=== PATIENT | female | born 1980 | race Caucasian/White ===

== ENCOUNTER 2019-11-05 16:00 | Outpatient (RCR) | payer OTHER, SELFPAY ==
--- NOTE | 2019-10-01 08:22 | HMH.PTOPEV ---
PT Outpatient Evaluation Rehab PT Outpatient Evaluation Start: 10/01/19 06:57 Freq: Status: Active Protocol: Document 10/01/19 07:33 PDESEROUX (Rec: 10/01/19 08:22 [email or web address] [id number]) Electronically Signed By Elias Rosario, DORA 10/01/19 07:33 Outpatient Therapy Subjective History Subjective History Pt. is a 38 year old female who presents to outpatient PT with complaints of chronic cervical/RUE P! of insidious onset 1 year ago with a recent exacerbation in the summer of 2018. Pt. reports an ache that radiates inferiorly to her hand with symptoms of tingling in her 3rd/4th/5th digits. Pt. denies symptoms in her L cervical anatomical region/LUE. Pt. reports symptoms are worse at the end of the week after working. Pt. reports symptom relief for a few days post steroid injection. Pt. denies having diagnostic imaging for current pathology. Pt. RTMD if necessary. Current medications include Ibuprofen, steroid pack, and a muscle relaxer(pt. unable to recall prescription name at this time). PMH includes 2 sections and a cervical biopsy. Chief Complaint Pain,Paresthesia,Other Symptom Type Ache,Tingling,Shooting Symptoms Relieved By Rest/Positioning,Ice, Prescription Meds Symptoms Aggravated By Physical Activity,Lifting Prior Functional Limitations None Current Functional Limitations Sleeping,Recreation Activity Symptom Description Constant and Continuous Level of pain today (0-10) 2 Pain scale - at its best (0-10) 2 Pain scale - at its worst (0-10) 6 Cervical Eval Palpation Cervical Muscles R Cervical Paraspinal,R Suboccipital,R CT Junction,R Upper Trapezius,R Thoracic Paraspinals Cervical/Thoracic Palpation Findings Tenderness,Spasm Posture Head/C-Spine Posture Sitting Position Neutral Position Head/C-Spine Posture Standing Position Neutral Position Flexibility Deficits Upper Trapezius Muscle Length (
== END 2019-11-15 09:21 | disposition home or self-care (01) ==
LOC: PT.CARL 16:00
PROVIDERS: Visit Provider Internal Medicine Adolescent Medicine
DX: M75.41 Impingement syndrome of right shoulder (principal)
CPT/HCPCS: 97012; 97033; 97110; 97140; 97163

== ENCOUNTER → 2020-02-17 08:08 | Outpatient (POV) | payer OTHER, SELFPAY | PROVIDERS: PCP Internal Medicine Adolescent Medicine; Referring Provider Internal Medicine Adolescent Medicine; Visit Provider Specialist | DX: M79.601 Pain in right arm (principal); R20.2 Paresthesia of skin | CPT/HCPCS: 95886; 95908 ==

== ENCOUNTER → 2021-07-09 08:04 | Outpatient (CLI) | payer OTHER, SELFPAY ==
--- NOTE | 2021-07-09 08:08 | XR_ITS ---
PROCEDURE: XR ELBOW RT MIN 3V CLINICAL INDICATION: RT ELBOW PAIN COMPARISON: No exams were available for comparison FINDINGS: Longitudinal lucency is present involving the anterior aspect of the coracoid process suggesting a nondisplaced fracture. There is a positive anterior fat pad. No other significant anomalies are evident. The joint spaces are well-preserved. No significant degenerative/arthritic changes. No erosive changes evident. Other findings:None. IMPRESSION: Nondisplaced fracture of the coracoid process. Dictated by: Saurabh Solorzano MD 07/09/2021 09:22 Saurabh Solorzano MD in [facility] 07/09/2021 09:22
== END ==
PROVIDERS: PCP Internal Medicine Adolescent Medicine; Visit Provider Internal Medicine Adolescent Medicine
DX: M25.521 Pain in right elbow (principal)
CPT/HCPCS: 73080

== ENCOUNTER → 2021-07-19 16:45 | Outpatient (CLI) | payer OTHER, SELFPAY ==
--- NOTE | 2021-07-19 16:49 | MR_ITS ---
PROCEDURE: MR ELBOW RT WO CON CLINICAL INDICATION: PAIN IN RIGHT ELBOW Elbow fracture, injury with pain Posterior elbow pain. Unable to extend the elbow COMPARISON: CR XR ELBOW RT MIN 3V from 07/09/2021 TECHNIQUE: Routine multiplanar multi echo sequences are performed without gadolinium enhancement. FINDINGS: Motion artifact obscures fine detail on these images. The triceps tendon appears intact. There is a small elbow joint effusion. Bone marrow edema is present at the coronoid process with a small avulsion fracture involving the anterior tip of the coronoid process. The radial head has an unremarkable appearance. There is suspected partial tear versus sprain of the ulnar collateral ligament involving the posterior bundle proximally. The anterior bundle appears intact. There is increased T2 signal along the proximal aspect of the lateral collateral ligament. This could be due to a partial tear or sprain. The annular ligament appears intact. The common extensor tendon has an unremarkable appearance. Small amount of soft tissue edema is present peripheral to the common extensor tendon and could be due to posttraumatic change. There is increased T2 signal involving the proximal aspect of the common flexor tendon suggesting partial tear or strain. The biceps tendon appears intact. The brachialis tendon also appears intact. There is some irregularity of the joint capsule anteriorly along the posterior aspect of the brachialis muscle... IMPRESSION: 1. Elbow joint effusion with bone marrow edema of the coronoid process with avulsion fracture of the tip of the coronoid process. 2. The triceps tendon appears intact. 3. Suspect tear versus sprain of the posterior bundle of the ulnar collateral ligament and proximal aspect of the lateral collateral ligament. 4. Increased T2 signal of the proximal aspect of the common flexor tendon suggesting partial tear or strain. 5. Irregularity of the joint capsule anteriorly which could be due to partial tear of the joint capsule versus underlying debris. Dictated by: Saurabh Solorzano MD 07/20/2021 08:48 Saurabh Solorzano MD in [facility] 07/20/2021 08:48
== END ==
PROVIDERS: PCP Internal Medicine Adolescent Medicine; Visit Provider Orthopaedic Surgery Adult Reconstructive Orthopaedic Surgery
DX: M25.521 Pain in right elbow (principal)
CPT/HCPCS: 73221

== ENCOUNTER → 2021-08-25 18:41 | Outpatient (CLI) | payer OTHER, SELFPAY ==
[2021-08-25 18:55] LABS: Adenovirus F 40/41, stool Not Detected (NotDetected); Astrovirus Not Detected (NotDetected); Campylobacter Not Detected (NotDetected); Clostridium Difficile A/B, PCR Not Detected (NotDetected); Cryptosporidium Not Detected (NotDetected); Cyclospora Cayetanesis Not Detected (NotDetected); Entamoeba histolytica Not Detected (NotDetected); Enteroaggregative E coli Not Detected (NotDetected); Enteropathogenic E coli Not Detected (NotDetected); Enterotoxigenic E coli Not Detected (NotDetected); Giardia lamblia Not Detected (NotDetected); Norovirus Not Detected (NotDetected); Plesimonas Shigalloides, PCR Not Detected (NotDetected); Rotavirus A Not Detected (NotDetected); Salmonella, PCR Not Detected (NotDetected); Sapovirus Not Detected (NotDetected); Shiga-like toxin E coli Not Detected (NotDetected); Shigella Enterovasive E coli Not Detected (NotDetected); Vibrio Cholerae Not Detected (NotDetected); Vibrio, PCR Not Detected (NotDetected); Yersinia Entercolitica, PCR Not Detected (NotDetected)
--- NOTE | 2021-08-25 19:22 | XR_ITS ---
PROCEDURE INFORMATION: Exam: XR Right Elbow Exam date and time: 08/25/2021 7:22 PM Age: 40 years old Clinical indication: Injury or trauma; Fall; Blunt trauma (contusions or hematomas); Patient HX: F/u to right elbow fracture per patient. ; Additional info: Post immobilizer brace removal, f/u to FX coronoid process TECHNIQUE: Imaging protocol: XR Right elbow. Views: 3 or more views. COMPARISON: MR ELBOW RT WO CON 07/19/2021 5:28 PM FINDINGS: Bones/joints: Mild irregularity of the tip of the coronoid process best appreciated on lateral projection. No new fractures. Soft tissues: Normal. IMPRESSION: Mild irregularity of the tip of the coronoid process compatible with healing coronoid process fracture.
[2021-08-30 18:42] LABS: Calprotectin, Fecal <16 ug/g (0-120)
[2021-08-31 18:35] LABS: Lactoferrin, Fecal, Quant. <1.00 ug/mL(g) (0.00-7.24)
== END ==
PROVIDERS: PCP Internal Medicine Adolescent Medicine; Referring Provider Orthopaedic Surgery Adult Reconstructive Orthopaedic Surgery; Visit Provider Internal Medicine Adolescent Medicine
DX: S52.041A Displaced fracture of coronoid process of right ulna, initial encounter for closed fracture (principal); R19.7 Diarrhea, unspecified
CPT/HCPCS: 73080; 83630; 83993; 87177; 87507

== ENCOUNTER → 2023-09-04 16:54 | Outpatient (CLI) | payer OTHER, SELFPAY ==
--- NOTE | 2023-09-04 16:57 | MM_ITS ---
PROCEDURE INFORMATION: Exam: MG Bilateral Screening 3D Mammography Exam date and time: 09/04/2023 4:47 PM Age: 42 years old Clinical indication: Screening examination TECHNIQUE: Imaging protocol: Bilateral Screening tomosynthesis and 2D mammography including computer-aided detection (CAD) when performed. COMPARISON: No relevant prior studies available. FINDINGS: MAMMOGRAPHY: Breast composition: There are scattered areas of fibroglandular density. Mass: None. Architectural distortion: None. Calcifications: No suspicious calcifications. Asymmetric density: None. Skin thickening: None. Axillary adenopathy: None. IMPRESSION: No mammographic evidence of malignancy. Annual screening is recommended unless otherwise clinically indicated. ASSESSMENT: BI-RADS Category 1: Negative
== END ==
PROVIDERS: PCP Internal Medicine Adolescent Medicine; Visit Provider Nurse Practitioner Family
DX: Z12.31 Encounter for screening mammogram for malignant neoplasm of breast (principal)
CPT/HCPCS: 77063; 77067

== ENCOUNTER 2025-10-21 09:51 | Outpatient (CLI) | payer OTHER, SELFPAY ==
--- OUTSIDE RECORDS SUMMARY | 2025-10-08 15:40 | XMS_ITS | Encounter Summary ---
Author Organization Healthcare Address [address] [place] [address] Care Team Providers Care Manager Animal Name Role Phone Fuentes Salmon MD Primary Care Provider + [phone] Reason for Visit * Reason Comments Gynecologic Exam Encounter Details Date Type Department Care Team (Late st Contact Info) Description 10/08/2025 3:40 PM EST Office Visit [facility] [address], [address] [place] [address] Cora Montoya, ADJUNCT ENGLISH INSTRUCTOR [address] [place] [address] Well woman exam (Primary Dx); Vaginal discharge Social History Tobacco Use Types Packs/Day Years Used Date Smoking Tobacco: Never Smokeless Tobacco: Never Tobacco Cessation:Counseling Given: Not Answered Alcohol Use Standard Drinks/Week Comments Yes 1 (1 standard drink = 0.6 oz pure alcohol) Alcohol: occassionally drinks:socially PHQ-2 Answer Date Recorded Patient Health Questionnaire-2 Score 0 10/08/2025 PHQ-2A Answer Date Recorded Patient Health Questionnaire-2 Score 0 09/15/2023 Comments Unknown Sex and Gender Information Value Date Recorded Sex Assigned at Female 09/05/2023 3:28 PM EDT Legal Sex Female 6:32 PM EDT Gender Identity Not on file Sexual Orientation Not on file documented as of this encounter Last Filed Vital Signs Vital Sign Reading Time Taken Comments Blood Pressure 133/84 10/08/2025 3:43 PM EST Pulse 95 10/08/2025 3:43 PM EST Temperature 37.1 C (98.7 F) 10/08/2025 3:43 PM EST Respiratory Rate - - Oxygen Saturation 98% 10/08/2025 3:43 PM EST Inhaled Oxygen Concentration - - Weight 85.1 kg (187 lb 9.8 oz) 10/08/2025 3:43 P M EST Height 165.1 cm (5' 5 ) 10/08/2025 3:43 PM EST Body Mass Index 31.22 10/08/2025 3:43 PM EST documented in this encounter Functional Status * Over the past 2 weeks, how often have you been bothered by any of the following problems? Question Answer Date of Assessment Author Little interest or pleasure in doing things Not at all 10/08/2025 3:45 PM EST Brandi Donovan LPN Feeling down, depressed, or hopeless Not at all 10/08/2025 3:45 PM EST Brandi Donovan LPN Patient Health Questionnaire -2 Score 0 10/08/2025 3:45 PM EST Brandi Donovan LPN documented as of this encounter Miscellaneous Notes * Cora Zepeda APRN - 10/08/2025 4:08 PM EST Images from the original note were not included. [id number] Health Screening Guidelines, Women Ages 40 to 49 Screening tests are a rodriguez to managing your health. A screening test is done to find problems in people who don't have any symptoms. Screening tests are not used to diagnose. They are used to find outif more testing is needed. The goal may be to find a disease early so it can be treated with more success. Or the goal may be to find a disease early so you can make lifestyle changes. You may need regular checkups to help you reduce your risk of disease. Below are guidelines for women ages 40 to 49. Talk with your healthcare provider to stay up-to-date. Screening Who needs it How often Type 2 diabetes or prediabetes All women in this age group At least every 3 years Type 2 diabetes All women with prediabetes Every year Alcohol misuse All women in this age group At routine exams Blood pressure All women in this age group Once a year if your blood pressure is normal. Normal is less than 120/80 mm Hg. If your blood pressure is higher than this, follow the advice of your healthcare provider. Breast cancer All women at average risk in this age group. Expert groups vary on their advice. Talkwith your provider. Talk with your healthcare provider to help you decide when to start mammogram screening. ? The U.S. Preventive Services Task Force advises mammograms every other year starting at age 40. ? The [place] [employer] advises that women ages 40 to 44 have the choice to start yearly mammograms. They advise yearly mammograms for women ages 45 to 54. All women should know how their breasts normally look and feel. Screening Who needs it How often Cervical cancer All women in this age group, unless they have had a complete hysterectomy Pap test every 3 years or Pap test and HPV test every 5 years Colorectal cancer Women age 45 years and older at average risk Talk with your provider about which test is right for you: ? Flexible sigmoidoscopy every 5 years ? Colonoscopy every [address] ? [address] colonography (virtual colonoscopy) every 5 years ? Yearly fecal occult blood test ? Yearly fecal immunochemical test (FIT) ? Stool DNA test every 3 years If you have a test that is not a colonoscopy and have an abnormal test result, you will need a colonoscopy. You may need to be screened more or less often. This is based on personal or family health history.Talk with your provider. Screening Who needs it How often Chlamydia Women at higher risk At routine exams if you're at risk or have symptoms Depression All women in this age group At routine exams Gonorrhea Sexually active women at higher risk At routine exams Hepatitis C Women in this age group at higher risk At routine exams High cholesterol or triglycerides All women ages 45 and older who are at risk for coronary artery disease. Younger women, talk with your provider. At least every 5 years HIV All women in this age group At routine exams. Those with risk factors for HIV should be tested at least 1 time a year. Obesity All women in this age group At routine exams Syphilis Women who are at higher risk. Ask your provider. At routine exams Tuberculosis Women who are at higher risk Ask your provider Vision All women in this age group Full exam at age 40. Then eye exams every 2 to 4 years. If you have a chronic disease, ask your provider how often you need an eye exam. Health Counseling Who needs it How often BRCA gene mutation testing for breast and ovarian cancer Women with higher risk for a gene mutationWhen your risk is known Breast cancer and chemoprevention Women at high risk for breast cancer When your risk is known Diet and exercise Women who are overweight or obese When diagnosed, and then at routine exams Domestic violence All women in this age group At routine exams Sexually transmitted infection (STI) prevention Women who are at higher risk. Talk with your provider. At routine exams Use of tobacco All women in this age group Every exam Last Reviewed Date: 2024 00:00:00 ?? [id number] [employer]. All rights reserved. This information is not intended as a substitute for professional medical care. Always follow your healthcare professional's instructions. * Progress Notes - Cora Montoya APRN - 10/08/2025 3:40 PM EST Gynecology Note Subjective: Chief Complaint Patient presents with Gynecologic Exam Sahara Hernandez is a 44 y.o. No obstetric history on file. here for a gynecologic consult visit to discuss Well woman exam [Z01.419]. History of Present Illness The patient presents for well woman exam. Patient had a normal pap in 2023. She reports a persistent yeast infection that has not responded to medication. She experiences intermittent itching and discomfort but does not report any pelvic pain. She has not been on antibioticsrecently. She has attempted treatment with a single-dose medication, which was ineffective. She continues to menstruate regularly and notes an improvement in her condition. She expresses interest in annual Pap smears. Her last mammogram, conducted 2 years ago, yielded normal results. She isscheduled for her next mammogram in approximately 2 weeks. She is not sexually active and does not use tobacco products, including smoking and vaping. She also abstains from alcohol, illicit drugs, and marijuana. She does not have any history of depression or anxiety and does not believe she requires treatment for these conditions. SOCIAL HISTORY She does not smoke, vape, drink alcohol, or use illicit drugs or marijuana. Past Medical History She has a past medical history of Abnormal Pap smear of cervix and Varicella. Past Surgical History She has a past surgical history that includes section, classic. Social History She reports that she has never smoked. She has never used smokeless tobacco. She reports current alcohol use of about 1.0 standard drink of alcohol per week. She reports that she does not use drugs. Family History Her family history includes Depression in her mother; Diabetes in an other family member; Rheumatologic disease in her mother. I have personally reviewed and updated the past medical history, past surgical history, social history, and family history. Current Medications She has a current medication list which includes the following prescription(s): cholecalciferol, xiidra, cefdinir, collagen-vitamin c-biotin, ibuprofen, multiple vitamin, and promethazine-dextromethorphan. Allergies Allergies[1] Review of Systems Genitourinary: Positive for vaginal discharge. All other systems reviewed and are negative. A complete ROS was obtained and all are negative except pertinent positives in HPI. Objective: Visit Vitals BP 133/84 Pulse 95 Temp 37.1 ??C (98.7 ??F) (Temporal) Body mass index is 31.22 kg/m??. Physical Exam Constitutional: General: She is not in acute distress. Appearance: Normal appearance. She is not ill-appearing. Genitourinary: Vulva, bladder and urethral meatus normal. No lesions in the vagina. Genitourinary Comments: White discharge Right Labia: No lesions. Left Labia: No lesions. Vulva exam comments: normal. Vaginal discharge present. No vaginal bleeding. No vaginal prolapse present. No vaginal atrophy present. Right Adnexa: not tender and no mass present. Left Adnexa: not tender and no mass present. No cervical discharge or lesion. No parametrium nodularity or thickening present. Uterus is not enlarged or tender. Bladder is not tender. Pelvic exam was performed with patient in the lithotomy position. Eyes: Extraocular Movements: Extraocular movements intact. Pulmonary: Effort: Pulmonary effort is normal. No respiratory distress. Abdominal: General: There is no distension. Palpations: Abdomen is soft. There is no mass. Tenderness: There is no abdominal tenderness. Musculoskeletal: Right lower leg: No edema. Left lower leg: No edema. Neurological: General: No focal deficit present. Mental Status: She is alert and oriented to person, place, and time. Gait: Gait normal. Skin: General: Skin is warm and dry. Psychiatric: Mood and Affect: Mood normal. Behavior: Behavior normal. Judgment: Judgment normal. Vitals reviewed. Exam conducted with a therapist speech present. Physical Exam Genitourinary: Speculum Exam: White discharge and mucus observed. Difficulty visualizing cervix due to mucus. Results Data Review: I have personally reviewed all relevant imaging, labs and test results. Assessment & Plan: Problem List Items Addressed This Visit Well woman exam - Primary Other Visit Diagnoses Vaginal discharge Assessment & Plan 1. Recurrent yeast infection: - Persistent symptoms despite previous treatment with a one-day antifungal and Diflucan. - White discharge observed, sometimes accompanied by itching and burning. - A new swab will be taken today to confirm the diagnosis. - Prescription for Diflucan provided, with instructions to take one dose initially and another doseafter 7 days if symptoms persist. 2. Health maintenance: - Pap smear is not due until 2028, but she prefers to have it done annually. - Advised to perform self-breast exams at home every couple of months. - Recommended heart-healthy diet including lean meats, vegetables, and fruits, and regular exercise(3 to 5 times a week for 30 minutes a day) for overall metabolic and mental health. - Pap smear will be conducted today. Cora Montoya APRN Verbal consent was obtained to use ambient listening technology to assist in the documentation of the encounter: yes [1] Allergies Allergen Reactions Amoxicillin Rash Face breaks out Doxycycline Rash documented in this encounter Plan of Treatment Upcoming Encounters Date Type Department Care Team (Late st Contact Info) Description 10/12/2026 3:40 PM EST Office Visit [facility] [address], [address] [place] [address] Cora Montoya APRN [address] [place] [address] [address] [place] [address] documented as of this encounter Visit Diagnoses Diagnosis Well woman exam- Primary Routine general medical examination at a health care facility Vaginal discharge Leukorrhea, not specified as infective documented in this encounter Additional Health Concerns Assessment Noted Time A fall risk assessment has been complete d for the patient 10/08/2025 3:45 PM EST A Body Mass Index follow-up plan has been documented for the patient 10/08/2025 4:12 PM EST documented as of this encounter Care Teams Manager Animal Relationship Specialty Start Date End Date Fuentes Salmon MD [address] [place] [id number] PCP - General Internal Medicine 09/15/23 documented as of this encounter
--- NOTE | 2025-10-21 09:53 | MM_ITS ---
PROCEDURE INFORMATION: Exam: MG Bilateral Screening 3D Mammography Exam date and time: 10/21/2025 9:56 AM Age: 44 years old Clinical indication: Screening examination TECHNIQUE: Imaging protocol: Bilateral Screening tomosynthesis and 2D mammography including computer-aided detection (CAD) when performed. COMPARISON: MG MM DIG SCREENING MAMM BI W/CAD 09/04/2023 4:47 PM FINDINGS: MAMMOGRAPHY: Breast composition: There are scattered areas of fibroglandular density. Mass: None. Architectural distortion: None. Calcifications: No suspicious calcifications. Asymmetric density: None. Skin thickening: None. Axillary adenopathy: None. IMPRESSION: No mammographic evidence of malignancy. Annual screening is recommended unless otherwise clinically indicated. ASSESSMENT: BI-RADS Category 1: Negative.
--- OUTSIDE RECORDS SUMMARY | 2025-10-21 09:58 | XMS_ITS | Encounter Summary ---
Author Organization Healthcare Address [address] [place] [address] Care Team Providers Care Flight Engineer Name Role Phone Fuentes Salmon MD Primary Care Provider + [phone] Encounter Details Date Type Department Care Team (Late st Contact Info) Description 10/14/2025 Results Follow-Up [facility] [address], [address] [place] [address] Cora Montoya, SURGICAL CONSULTANT [address] [place] [address] Social History Tobacco Use Types Packs/Day Years Used Date Smoking Tobacco: Never Smokeless Tobacco: Never Alcohol Use Standard Drinks/Week Comments Yes 1 [...] on file documented as of this encounter Miscellaneous Notes * Telephone Encounter - Cadence Donovan RN - 10/15/2025 2:05 PM EST Pt aware voiced understanding * Telephone Encounter - Cadence Donovan RN - 10/15/2025 11:30 AM EST Left message for pt to return call documented in this encounter Plan of Treatment Upcoming Encounters Date Type Department Care Team (Late st Contact Info) Description 10/12/2026 3:40 PM EST Office Visit [address], [address] [place] [address] Cora Montoya APRN [address] [place] [address] documented as of this encounter Visit Diagnoses Not on filedocumented in this encounter Additional Health Concerns Assessment Noted Time A fall risk assessment has been complete d for the patient 10/08/2025 3:45 PM EST A Body Mass Index follow-up plan has been documented for the patient 10/08/2025 4:12 PM EST documented as of this encounter Care Teams Flight Engineer Relationship Specialty Start Date End Date Fuentes Salmon MD [address] [place] [id number] PCP - General Internal Medicine 09/15/23 documented as of this encounter
--- OUTSIDE RECORDS SUMMARY | 2025-10-21 09:58 | XMS_ITS | Encounter Summary ---
Author Organization Healthcare Address [address] [id number] Care Team Providers Care Quality Assurance Supervisor Final Name Role Phone Fuentes Salmon MD Primary Care Provider [phone] Encounter Details Date Type Department Care Team (Late st Contact Info) Description 10/14/2025 Orders Only [address] [address] Cora Montoya, ADMIN DIR [address] [facility] [address] [place] [address] Social History Tobacco Use Types [...] on file documented as of this encounter Plan of Treatment Upcoming Encounters Date Type Department Care Team (Late st Contact Info) Description 10/12/2026 3:40 PM EST Office Visit [address], [address] [address] Cora Montoya, ADMIN DIR [address] [facility] [address] [place] [address] documented as of this encounter Procedures Procedure Name Priority Date/Time Associated Diagnosis Comments PAP TEST - CYTOLOGY Routine 10/14/2025 3 :53 PM EST documented in this encounter Results * Pap Test (10/14/2025 3:53 PM EST) Thin Prep Vaginal and cervical cytologic material / Unknown Cora Montoya APRN LAB CYTOLOGY ORDERABLES Fi nal Result documented in this encounter Visit Diagnoses Not on filedocumented in this encounter Additional Health Concerns Assessment Noted Time A fall risk assessment has been complete d for the patient 10/08/2025 3:45 PM EST A Body Mass Index follow-up plan has been documented for the patient 10/08/2025 4:12 PM EST documented as of this encounter Care Teams Quality Assurance Supervisor Final Relationship Specialty Start Date End Date Fuentes Salmon MD [address] [place] [id number] PCP - General Internal Medicine 09/15/23 documented as of this encounter
--- OUTSIDE RECORDS SUMMARY | 2025-10-21 09:58 | XMS_ITS | Encounter Summary ---
Author Organization Healthcare Address [address] [id number] Care Team Providers Care Customer Supply Coordinator Name Role Phone Fuentes Salmon MD Primary Care Provider [phone] Encounter Details Date Type Department Care Team (Late st Contact Info) Description 10/10/2025 Results Follow-Up [address] [address] Cora Montoya, SOCIAL WORK ASSISTANT [address] [facility] [address] [place] [address] Social History Tobacco Use Types [...] Telephone Encounter - Cadence Donovan RN - 10/13/2025 2:58 PM EST Pt aware voiced understanding documented in this encounter Plan of Treatment Upcoming Encounters Date Type Department Care Team (Late st Contact Info) Description 10/12/2026 3:40 PM EST Office Visit [address], [address] [place] [address] Cora Montoya, SOCIAL WORK ASSISTANT [address] [place] [address] documented as of this encounter Visit Diagnoses Not on filedocumented in this encounter Additional Health Concerns Assessment Noted Time A fall risk assessment has been complete d for the patient 10/08/2025 3:45 PM EST A Body Mass Index follow-up plan has been documented for the patient 10/08/2025 4:12 PM EST documented as of this encounter Care Teams Customer Supply Coordinator Relationship Specialty Start Date End Date Fuentes Salmon MD [address] [place] [id number] PCP - General Internal Medicine 09/15/23 documented as of this encounter
--- OUTSIDE RECORDS SUMMARY | 2025-10-21 09:58 | XMS_ITS | Clinical Summary ---
Author Organization [facility] Address [address] [place] [address] Care Team Providers Care Sports Writer Name Role Phone Fuentes Salmon MD Primary Care Provider [phone] Allergies Active Allergy Reactions Criticality Noted Date Comments Amoxicillin Other (See Comments) 04/01/2020 Face breaks out Medications methocarbamol (ROBAXIN) 500 MG tablet Take 500 mg by mouth 3 (Three) Times a Day As Needed. for muscle spams 02/05/2020 Active Active Problems No known active problems Family History Medical History Relation Name Comments No Known Problems Father Hypertension Mother Relation Name Status Comments Father Mother Social History Tobacco Use Types Packs/Day Years Used Date Smoking Tobacco: Never Smokeless Tobacco: Never Alcohol Use Standard Drinks/Week Comments Yes 0 (1 standard drink = 0.6 oz pur e alcohol) occ Abuse Screen Answer Date Recorded Unsafe at Home or Work/School Not on file Feels Threatened by Someone? Not on file 07/2023 Does Anyone Keep You from Co ntacting Others or Doint Things Outside the Home? Not on file 09/04/2023 Physical Sign of Abuse Present Not on file 1 Housing Stability Answer Date Recorded Current Living Arrangements Not on file 07/2023 Potentially Unsafe Housing Conditions Not on sal e 09/04/2023 Family and Community Support Answer Hang e Recorded Help with Day-to-Day Activities Not on file 09/04/2023 Lonely or Isolated Not on file 09/04/2023 Employment Answer Date Recorded Do you want help finding or keeping work or a tj b? Not on file 09/04/2023 Disabilities Answer Date Recorded Concentrating, Remembering, or Making Decisions Difficulty Not on file 09/04/2023 Doing Errands Independently Difficulty Not on fi le 09/04/2023 Education Answer Date Recorded Help with school or training? Not on file Preferred Language Not on file 09/04/2023 Comments Unknown Sex and Gender Information Value Date Recorded Sex Assigned at Not on file Legal Sex Female 10:01 AM EDT Gender Identity Not on file Sexual Orientation Not on file Last Filed Vital Signs Vital Sign Reading Time Taken Comments Blood Pressure - - Pulse 67 04/01/2020 3:08 PM EDT Temperature - - Respiratory Rate - - Oxygen Saturation 95% 04/01/2020 3:08 PM EDT Inhaled Oxygen Concentration - - Weight 73.9 kg (162 lb 14.7 oz) 04/01/2020 3:08 PM EDT Height 163.2 cm (5' 4.25 ) 04/01/2020 3:08 PM ED T Body Mass Index 27.75 04/01/2020 3:08 PM EDT Plan of Treatment Health Maintenance Due Date Last Done Comments Annual Gynecologic Pelvic an d Breast Exam 1982 TDAP/TD VACCINES (1 - Tdap) 2001 ANNUAL PHYSICAL 04/01/2020 HEPATITIS C SCREENING 04/01/2020 MAMMOGRAM 2022 INFLUENZA VACCINE 06/27/2025 Pneumococcal Vaccine 0-49 Aged Out No longer eligible based on patient's age to complete this topic Insurance Care Teams Sports Writer Relationship Specialty Start Date End Date Fuentes Salmon MD [address] [place] [address] PCP - General Adolescent Medicine 04/01/20
--- OUTSIDE RECORDS SUMMARY | 2025-10-21 09:58 | XMS_ITS | Clinical Summary ---
Author Organization [facility] Address [address] [place] [address] Care Team Providers Care Weaver Apprentice Name Role Phone Fuentes Salmon MD Primary Care Provider [phone] Allergies Active Allergy Reactions Criticality Noted Date Comments Amoxicillin Rash Low 11/14/2017 Face breaks out Doxycycline Rash Low 01/01/2024 Medications ibuprofen 800 MG tablet Take 1 tablet (800 mg) by mouth every 6 (six) hours if needed. Active cefdinir (Omnicef) 300 MG capsule every 12 (twelve) hours. 4 Active promethazine-de xtromethorphan (Phenergan-DM) 6.25-15 MG/5ML syrup every 6 (six) hours. 4 Active COLLAGEN PO Take by mouth. Active Multiple Vitamin (MULTIVITAMIN PO) Take by mouth. Active Xiidra 5 % solution 5 Active cholecalciferol (Vitamin D-3) 250 MCG (69111 UT) capsule Take 1 capsule by mouth daily. Active fluconazole (Diflucan) 150 MG tabletIndicatio ns:Vaginal discharge Take 1 tablet by mouth 1 time for 1 dose. Repeat in 7 days if symptoms persist. 2 tablet 5 10/08/20 25 Active Problems Problem Noted Date Diagnosed Date Screening for STD (sexually transmitted disease) 01/05/2024 Sexually transmitted disease 09/21/2023 Assessment & Plan (09/21/2023 11:07 AM EDT): Medication was sent to pharmacy. Abstain from intercourse until all partners have completed antibiotics. Oligomenorrhea 09/19/2023 Assessment & Plan (09/19/2023 7:29 AM EDT): Patient had irregular menses last month. Will follow up in 3 months to see if issue has resolved. Well woman exam 09/19/2023 Assessment & Plan (09/19/2023 7:31 AM EDT): Well woman exam completed. Pelvic exam normal. Pap sent for cytology. Will follow up. Patient just had mammogram. Will follow up annually for well woman visit and as needed. Encounters Date Type Department Care Team Description 10/14/2025 Results Follow-Up [address], [address] [place] [address] Cora Montoya, CLOUD SECURITY ARCHITECT 10/14/2025 Orders Only [address], [address] [place] [address] Cora Montoya, CLOUD SECURITY ARCHITECT 10/10/2025 Results Follow-Up [address], [address] [place] [address] Cora Montoya, CLOUD SECURITY ARCHITECT 10/10/2025 Orders Only [address], [address] [place] [address] Cora Montoya, CLOUD SECURITY ARCHITECT 10/08/2025 3:40 PM EST Office Visit [address], [address] [place] [address] Cora Montoya, CLOUD SECURITY ARCHITECT Well woman exam (Primary Dx); Vaginal discharge 10/08/2025 Travel 10/01/2025 Travel from Last 3 Months Family History Medical History Relation Name Comments Depression Mother Rheumatologic disease Mother Diabetes Other Maternal grandfather Relation Name Status Comments Father Alive Mother Alive Other Maternal grandfather Social History Tobacco Use Types Packs/Day Years [...] F) 10/08/2025 3:43 PM EST Respiratory Rate 18 01/01/2024 3:02 PM EST Oxygen Saturation 98% 10/08/2025 3:43 PM EST Inhaled Oxygen Concentration - - Weight 85.1 kg (187 lb 9.8 oz) 10/08/2025 3:43 P M EST Height 165.1 cm (5' 5 ) 10/08/2025 3:43 PM EST Body Mass Index 31.22 10/08/2025 3:43 PM EST Plan of Treatment Upcoming Encounters Date Type Department Care Team (Late st Contact Info) Description 10/12/2026 3:40 PM EST Office Visit [facility] [address] [facility], [address] [place] [address] Cora Montoya, JUAN [address] [place] [address] Health Maintenance Due Date Last Done Comments [facility]-HIV Screening 1982 [facility]-Hepatitis C Screening 1982 [facility]-Infant/Child/Adol SDOH Screenings 1982 [facility]-Varicella Vaccines (1 of 2 - 13+ 2-dose series) 1995 [facility]- SDOH Screenings 2000 [facility]-Adult SDOH Screenings 2000 [facility]-DTaP,Tdap,and Td Vaccines (1 - Tdap) 2001 [facility]-Hepatitis B Vaccines (1 of 3 - 19+ 3-dose series) 2001 HPV Vaccines (1 - 3-dose SCDM series) 2009 [facility]-HPV/Cotest 2012 [facility]-VOJKH-50 Vaccine ( season) 2025 11/25/2021, 04/08/2021 [facility]-Influenza Vaccine (#1) 2025 [facility]-Depression Screening 10/08/2026 10/08/2025 [facility]-Cervical Cancer Screening 10/14/2028 [facility]-Pap Smear 10/14/2028 10/14/2025, 09/27, 10/08/2024, Additional history exists [facility]-Zoster Vaccines (1 of 2) 2032 [facility]-Obesity Intervention Completed 025, 09/27/2024, 01/01/2024, Additional history exists [facility]-HIB Vaccines Aged Out No longer e ligible based on patient's age to complete this topic [facility]-Hepatitis A Vaccines Aged Out No longer eligible based on patient's age to complete this topic [facility]-IPV Vaccines Aged Out No longer e ligible based on patient's age to complete this topic [facility]-Pneumococcal Vaccine: Pediatrics (0 to 5 Years) and At-Risk Patients (6 to 49 Years) Aged Out No longer eligible based on patient's age to complete this topic [facility]-Rotavirus Vaccines Aged Out No lo nger eligible based on patient's age to complete this topic Procedures Procedure Name Priority Date/Time Associated Diagnosis Comments PAP TEST - CYTOLOGY Routine 10/14/2025 3 :53 PM EST GENITAL CULTURE AND GRAM STAIN Routine 10/10/2025 11:31 AM EST PAP SMEAR EXTERNAL RESULT 10/08/2025 from Last 3 Months Results * Pap Test (10/14/2025 3:53 PM EST) Thin Prep Vaginal and cervical cytologic material / Unknown us Cora Montoya [facility] LAB CYTOLOGY ORDERABLES Fi nal Result * Genital Culture and Gram Stain (10/10/2025 11:31 AM EST) Swab Vaginal structure / Unknown Cora Montoya APRN LAB MICROBIOLOGY - GENERAL ORDERABLES Final Result * Pap Smear External Result (10/08/2025) Narrative 10/08/2025 Ordered by an unspecified provider. us External Provider LAB CYTOLOGY ORDERABLES Final Result from Last 3 Months Insurance [employer] Care Teams Weaver Apprentice Relationship Specialty Start Date End Date Fuentes Salmon MD [address] [place] [id number] PCP - General Internal Medicine 09/15/23
--- OUTSIDE RECORDS SUMMARY | 2025-10-21 09:59 | XMS_ITS | Encounter Summary ---
Author Organization Healthcare Address [address] [id number] Care Team Providers Care Tank Filler Name Role Phone Fuentes Salmon MD Primary Care Provider [phone] Encounter Details Date Type Department Care Team (Late st Contact Info) Description 10/10/2025 Orders Only [address] [address] Cora Montoya, LOAN OFFICER ASSISTANT [address] [facility] [address] [place] [address] Social History Tobacco Use Types [...] Description 10/12/2026 3:40 PM EST Office Visit [address], [address] [address] Cora Montoya, LOAN OFFICER ASSISTANT [address] [facility] [address] [place] [address] documented as of this encounter Procedures Procedure Name Priority Date/Time Associated Diagnosis Comments GENITAL CULTURE AND GRAM STAIN Routine 10/10/2025 11:31 AM EST documented in this encounter Results * Genital Culture and Gram Stain (10/10/2025 11:31 AM EST) Swab Vaginal structure / Unknown Cora Montoya APRN LAB MICROBIOLOGY - GENERAL ORDERABLES Final Result documented in this encounter Visit Diagnoses Not on filedocumented in this encounter Additional Health Concerns Assessment Noted Time A fall risk assessment has been complete d for the patient 10/08/2025 3:45 PM EST A Body Mass Index follow-up plan has been documented for the patient 10/08/2025 4:12 PM EST documented as of this encounter Care Teams Tank Filler Relationship Specialty Start Date End Date Fuentes Salmon MD [address] [place] [address] PCP - General Internal Medicine 09/15/23 documented as of this encounter
--- OUTSIDE RECORDS SUMMARY | 2025-10-21 09:59 | XMS_ITS | Encounter Summary ---
Author Organization Healthcare Address [address] [place] [address] Care Team Providers Care Lithographic Press Operator Name Role Phone Fuentes Salmon MD Primary Care Provider Encounter Details Date Type Department Care Team (Latest Contact Info) Description 10/01/2025 Travel Social History Tobacco Use Types Packs/Day Years Used Date Smoking Tobacco: Never Smokeless Tobacco: Never Alcohol Use Standard Drinks/Week Comments Yes 0 (1 standard drink = 0.6 oz pure alcohol) Alcohol: occassionally drinks:socially PHQ-2 Answer Date Recorded Patient Health Questionnaire-2 Score 0 09/27/2024 PHQ-2A Answer Date Recorded Patient Health Questionnaire-2 [...] Description 10/12/2026 3:40 PM EST Office Visit [facility] [address] [facility], [address] [place] [address] Cora Montoya, TERRAZZO LAYER [address] [facility] [address] [place] [address] documented as of this encounter Visit Diagnoses Not on filedocumented in this encounter Additional Health Concerns Assessment Noted Time A fall risk assessment has been complete d for the patient 01/01/2024 3:04 PM EST A Body Mass Index follow-up plan has been documented for the patient 09/30/2024 9:47 AM EST documented as of this encounter Care Teams Lithographic Press Operator Relationship Specialty Start Date End Date Fuentes Salmon MD [address] [place] [address] PCP - General Internal Medicine 09/15/23 documented as of this encounter
--- OUTSIDE RECORDS SUMMARY | 2025-10-21 09:59 | XMS_ITS | Encounter Summary ---
Author Organization Healthcare Address [address] [place] [address] Care Team Providers Care Cover Making Machine Operator Name Role Phone Fuentes Salmon MD Primary Care Provider Encounter Details Date Type Department Care Team (Latest Contact Info) Description 10/08/2025 Travel Social History Tobacco Use Types Packs/Day [...] on file documented as of this encounter Functional Status * Over the [...] Donovan LPN documented as of this encounter Plan of Treatment Upcoming Encounters Date Type Department Care Team (Late st Contact Info) Description 10/12/2026 3:40 PM EST Office Visit [facility] [address] [facility], [address] [place] [address] Cora Montoya, PLANT ELECTRICAL ENGINEER [address] [facility] [address] [place] [address] documented as of this encounter Visit Diagnoses Not on filedocumented in this encounter Additional Health Concerns Assessment Noted Time A fall risk assessment has been complete d for the patient 10/08/2025 3:45 PM EST A Body Mass Index follow-up plan has been documented for the patient 10/08/2025 4:12 PM EST documented as of this encounter Care Teams Cover Making Machine Operator Relationship Specialty Start Date End Date Fuentes Salmon MD [address] [place] [id number] PCP - General Internal Medicine 09/15/23 documented as of this encounter
== END 2025-10-21 23:59 | disposition home or self-care (01) ==
LOC: RAD 09:51
PROVIDERS: PCP Internal Medicine Adolescent Medicine; Visit Provider Internal Medicine Adolescent Medicine
DX: Z12.31 Encounter for screening mammogram for malignant neoplasm of breast (principal); R92.323 Mammographic fibroglandular density, bilateral breasts
CPT/HCPCS: 77063; 77067